=== PATIENT | male | born 1970 | race Two or more races ===

== ENCOUNTER 2017-06-22 16:17 | Emergency (ER) | payer OTHER ==
[~2017-06-22] VITALS: Ht 167.6 cm; Wt 81.6 kg
[2017-06-22 17:35] VITALS: BP 125/55
--- NOTE | 2017-06-22 17:35 | NUR ---
Patient discharged to home in stable condition. Written and verbal after care instructions given. Patient verbalizes understanding of instruction. ADVISED THE PATIENT TO FOLLOW UP WITH PMD IN 2 DAYS FOR WOUND CHECK
== END 2017-06-22 17:37 | disposition home or self-care (01) ==
LOC: ER 16:24
DX: S61.011A Laceration without foreign body of right thumb without damage to nail, initial encounter (principal); W45.8XXA Other foreign body or object entering through skin, initial encounter; Y93.89 Activity, other specified; Y92.89 Other specified places as the place of occurrence of the external cause; Y99.8 Other external cause status
CPT/HCPCS: 12002; 99283; A4606; A6402; Z7610

== ENCOUNTER 2018-10-08 11:26 | Emergency (ER) | payer OTHER ==
[~2018-10-08] VITALS: Ht 172.7 cm; Wt 79.4 kg
--- NOTE | 2018-10-08 11:30 | NUR ---
PATIENT BIB SELF IN THE ER, C/O OF LEFT SHOULDER PAIN. ALERT AND ORIENTED X 4, VERBALLY RESPONSIVE AND ABLE TO MAKE NEEDS KNOWN. ON ROOM AIR, BREATHING EVENLY AND UNLABORED. KEPT COMFORTABLE. WILL CONTINUE TO MONITOR ACCORDINGLY.
[2018-10-08 13:25] VITALS: BP 121/71
--- NOTE | 2018-10-08 13:25 | NUR ---
Patient discharged to home in stable condition. Written and verbal after care instructions given. Patient verbalizes understanding of instruction.
== END 2018-10-08 13:25 | disposition home or self-care (01) ==
LOC: ER 11:28
DX: S40.012A Contusion of left shoulder, initial encounter (principal); W18.39XA Other fall on same level, initial encounter; Y93.K1 Activity, walking an animal; Y92.89 Other specified places as the place of occurrence of the external cause; Y99.8 Other external cause status
CPT/HCPCS: 73030; 99283; A4606; Z7610

== ENCOUNTER 2019-01-31 20:14 | Emergency (ER) | payer OTHER ==
[~2019-01-31] VITALS: Ht 172.7 cm; Wt 79.4 kg
--- NOTE | 2019-01-31 20:30 | NUR ---
PT PRESENTED TO THE ER WITH A C/O RT SIDED GROIN PAIN. PT HAS A BUMP ON THE RT GROIN X 1 MONTH S/P HITTING IT ON A STEP. PT IS AA7O X4. PT IS ON THE MONITOR AND CONTINUOUS PULSE OX. VSS.
--- NOTE | 2019-01-31 21:08 | NUR ---
US TECH IS AT THE BEDSIDE.
--- NOTE | 2019-01-31 21:25 | NUR ---
US TECH FINISHED.
[2019-01-31] MEDS ORDERED: HYDROCODONE/APAP 5/325MG 1 EACH TABLET PO ONE (21:30)
[2019-01-31] MEDS ORDERED: IBUPROFEN 600 MG TABLET PO ONE ×2 (21:30→21:33)
[2019-01-31] MEDS ORDERED: IV NS 0.9% 1,000 ML BAG IV ONE (21:30)
[2019-01-31] MEDS ORDERED: HYDROCODONE/APAP 5/325MG 1 EACH TABLET ONE (21:33)
[2019-01-31 21:45] LABS: BASOPHILS % (AUTO) 0.3 % (0.0-2.0); EOSINOPHILS % (AUTO) 1.8 % (0.0-6.0); HEMATOCRIT 37 % (39-51); HEMOGLOBIN 12.3 g/dL (13.5-17.5); LYMPHOCYTES # (AUTO) 2.5 /CMM (0.8-4.8); LYMPHOCYTES % (AUTO) 20.3 % (20.0-44.0); MEAN CORPUSCULAR HGB CONC 33 g/dl (31.0-36.0); MEAN CORPUSCULAR VOLUME 90 fL (80-96); MONOCYTES # (AUTO) 0.9 /CMM (0.1-1.30); MONOCYTES % (AUTO) 7.1 % (2.0-12.0); NEUTROPHILS # (AUTO) 8.7 /CMM (1.8-8.9); NEUTROPHILS % (AUTO) 70.5 % (43.0-81.0); PLATELET COUNT (AUTO) 631 /CMM (150-450); RED BLOOD CELL COUNT(AUTO) 4.12 MIL/uL (4.5-6.0); WHITE BLOOD COUNT (AUTO) 12.4 K/uL (4.3-11.0)
[2019-01-31 21:52] LABS: APPEARANCE,URINE CLEAR (CLEAR); BILIRUBIN,URINE NEGATIVE (NEGATIVE); BLOOD, URINE TRACE-INTA Ery/uL (NEGATIVE); COLOR,URINE YELLOW (YELLOW); KETONES,URINE NEGATIVE (NEGATIVE); LEUKOCYTE ESTERASE ,URINE NEGATIVE (NEGATIVE); NITRITE, URINE NEGATIVE (NEGATIVE); PROTEIN,URINE NEGATIVE (NEGATIVE); UGLUCOSE NEGATIVE (NEGATIVE); UROBILINOGEN,URINE 0.2 EU/dL (0.2)
[2019-01-31 21:54] LABS: BACTERIA,URINE Rare /HPF (None Seen); RBC,URINE 0-2 /HPF (0-2); SQUAMOUS EPITHELIAL CELL,UR Few /HPF (None Seen); WBC,URINE 0-2 /HPF (0-3)
[2019-01-31 21:59] LABS: ALBUMIN 2.9 g/dL (3.4-5.0); BILIRUBIN,TOTAL 0.1 mg/dL (0.2-1.0); CALCIUM, SERUM 8.1 mg/dL (8.5-10.1); POTASSIUM 4.5 mmol/L (3.5-5.1); TOTAL PROTEIN, SERUM 7.7 g/dL (6.4-8.2)
[2019-01-31] MEDS ORDERED: CT SWABBABLE VALVE TRANS SET 1 EA INFUS.SET MC ONE (22:07)
[2019-01-31] MEDS ORDERED: IOHEXOL-300 100 ML VIAL IV ONE (22:07)
[2019-01-31] MEDS ORDERED: IV NS 0.9% 250 ML IV ONE (22:08)
--- NOTE | 2019-01-31 22:16 | NUR ---
PT LEFT FOR CT VIA GURNEY.
--- NOTE | 2019-01-31 22:20 | NUR ---
PT RETURNED FROM CT.
--- NOTE | 2019-01-31 22:41 | NUR ---
PT APPEARS TO BE RESTING COMFORTABLY WITH NO S/S OF PAIN OR DISTRESS. PT REC'D CRACKERS AND JUICE.
--- NOTE | 2019-01-31 23:11 | NUR ---
CALLED KAILASH RE: CT READ
--- NOTE | 2019-01-31 23:56 | NUR ---
[place] PA-C IS AT THE BEDSIDE SPEAKING TO THE PT RE: CT AND US FINDINGS.
--- NOTE | 2019-01-31 23:57 | NUR ---
IV removed. Catheter intact and site benign. Pressure and 4x4 applied to site. No bleeding noted.Patient discharged to home in stable condition. Written and verbal after care instructions given. Patient verbalizes understanding of instruction AND RX. PT REC'D A COPY OF THE IMAGING ON DISK AND A COPY OF THE FINDINGS. PT AMUBULATED OUT WITH A STEADY GAIT. VSS.
[2019-01-31 23:58] VITALS: BP 115/72
--- NOTE | 2019-02-01 00:08 | NUR ---
PT IS CALLING HIS DAUGHTER TO PICK HIM UP. PT IS LEAVING HIS CAR IN THE PARKING LOT UNTIL LATER IN THE MORNING.
== END 2019-02-01 00:09 | disposition home or self-care (01) ==
LOC: ER 20:18
DX: R59.1 Generalized enlarged lymph nodes (principal); R10.31 Right lower quadrant pain; D47.3 Essential (hemorrhagic) thrombocythemia; D64.9 Anemia, unspecified; D72.829 Elevated white blood cell count, unspecified
CPT/HCPCS: 36415; 74177; 76870; 80048; 80076; 81001; 85025; 87491; 87591; 99284; J7030; J7050; Q9967; 81000-TC